=== PATIENT | female | born 1980 | race Caucasian/White ===

== ENCOUNTER 2018-08-03 17:14 | Emergency (ER) | payer OTHER ==
[~2018-08-03] VITALS: Ht 157.5 cm; Wt 58.0 kg
[~2018-08-03 17:14] MED LIST: ADDERALL 10 MG10 MG; ALPRAZOLAM 0.50.5 M1 PO; ALPRAZOLAM PO; BENTYL 20 MG TA20 M1 PO; DILANTIN 100 M100 MG PO; DILANTIN100 MG; DILANTIN100 MG PO; FENTANYL PA50 MCG/HR; FENTANYL PA50 MCG/HR TP; FLEXERIL PO; HYDROCODONE-AP1 EAC6 PO; IMODIUM A-D1 MG/5 ML; KEPPRA 500 MG500 M1 PO; LEXAPRO 10 MG T10 M1; LEXAPRO 10 MG T10 M1 PO; LEXAPRO20 MG PO; LUPRON DEPOT11.25 M3; MARINOL10 MG; MARINOL10 MG PO; MULTI FOR HER1 EACH; NAPROSYN500 MG PO; NASONEB NASAL1 EACH MC; NORCO 5-325 TA1 EACH PO; OTC PROBIOTIC; OXYCODONE HCL 55 MG PO; OXYCODONE HCL15 MG PO; OXYIR 5 MG CAPSU5 M1 PO; PHENERGAN 25 MG25 M1 PO; PHENERGAN25 M1 RC; PHENERGAN25 MG RECTAL; PREDNISONE 10 M10 MG PO; PREDNISONE 20 M20 M1 PO; PROBIOTIC1 EAC1 PO; PROMETHAZI6.25 MG/2 PO; PROMETHAZINE12.5 M1 PO; PROMS25 WY RECTAL; PROTONIX40 M2 PO; PROTONIX40 MG PO; QUESTRAN PACKET4 GM PO; RESTORIL30 MG; ROXICET 5-3251 EACH; ROXICODONE15 M1 PO; ROXICODONE5 M1 PO; TESSALON200 MG PO; VANCOCIN 125 M125 M1 PO; VANCOCIN 250 M250 M1 PO; VENTOLIN HFA INH8 GM INH; VICODIN; VICODIN 5-5001 EACH PO; VISTARIL 25 MG25 M1 PO; VOLTAREN GEL 1100 G1 TOP; WELCHOL; WELCHOL 625 MG625 M1; WELCHOL 625 MG625 M1 PO; XANAX 0.5 MG0.5 M1 PO; XANAX 1 MG TABLE1 MG PO; XANAX XR2 MG PO; XOPENEX1.25 MG/3 IH; ZANTAC 150MG T150 M1; ZOFRAN ODT4 MG; ZOFRAN ODT4 MG PO; ZOFRAN4 MG PO; ZOFRAN8 MG; ZOFRAN8 MG PO; ZPAK PO
[2018-08-03 17:56] VITALS: BP 137/91
--- NOTE | 2018-08-04 12:58 | EKG ---
[place] [address] ELECTROCARDIOGRAM REPORT Name: EMERYEDGAR GHAZALA Room: [facility]#: [id number] Admission: 08/03/18 Attend Phys: Discharge: 08/03/18 Date of : 84 Report #: [id number] THIS REPORT FOR: //name// [facility] ED Test Date: 2018-08-03 Test Time: 17:22:39 Pat Name: EDGAR LAND Department: Room: Gender: F Family Program Specialist: EVGENY : 1980 Requested By: Shane Min Order Number: [id number] MD: Mal Padron Measurements Intervals [place] Rate: 97 P: 54 MI: 144 QRS: 56 QRSD: 81 T: 57 QT: 353 QTc: 449 Interpretive Statements Sinus rhythm Baseline wander in lead(s) V2 Compared to ECG 12/23/2012 00:07:37 Sinus arrhythmia no longer present Electronically Signed On 08-04-2018 12:58:06 CDT by Mal Padron [email or web address] <ELECTRONICALLY SIGNED> By: Mal Padron MD, [facility] 08/04/18 1258 21 21 Mal Padron MD, FACC /EPI
== END 2018-08-03 17:58 | disposition left against medical advice (07) ==
LOC: M.ERS 17:14
DX: R07.9 Chest pain, unspecified (principal); Z76.5 Malingerer [conscious simulation]; F32.9 Major depressive disorder, single episode, unspecified; Z88.1 Allergy status to other antibiotic agents; Z91.041 Radiographic dye allergy status; Z88.8 Allergy status to other drugs, medicaments and biological substances; Z88.0 Allergy status to penicillin; Z88.2 Allergy status to sulfonamides; Z91.048 Other nonmedicinal substance allergy status; Z88.6 Allergy status to analgesic agent; Z88.7 Allergy status to serum and vaccine; Z90.5 Acquired absence of kidney; Z85.05 Personal history of malignant neoplasm of liver; Z85.528 Personal history of other malignant neoplasm of kidney